=== PATIENT | female | born 1975 | race African-American/Black ===

== ENCOUNTER 2018-11-20 09:31 | Emergency (ER) | payer OTHER ==
[2018-11-20 10:01] LABS: URINE PH (Dip) POC 5.5 (5.0-8.5)
[2018-11-20 10:01] LABS: URINE BLOOD (Dip) POC 2+ (NEGATIVE); URINE GLUCOSE (Dip) POC Negative (NEGATIVE); URINE KETONES (Dip) POC Negative (NEGATIVE); URINE LEUKOCYTE EST (Dip) POC 2+ (NEGATIVE); URINE NITRITE (Dip) POC Positive (NEGATIVE); URINE TOTAL PROTEIN POC 1+ (NEGATIVE)
== END 2018-11-20 10:30 | disposition home or self-care (01) ==
LOC: FTE 09:31
DX: N39.0 Urinary tract infection, site not specified (principal)
CPT/HCPCS: 81003; 81025; 99283